=== PATIENT | female | born 1950 ===

== ENCOUNTER 2022-10-03 10:26 | Outpatient (CLI) | payer OTHER | END 2022-10-03 10:35 | disposition home or self-care (01) | LOC: MAMO-SONO 10:26 | PROVIDERS: ATTEND Family Medicine Geriatric Medicine | DX: Z12.31 Encounter for screening mammogram for malignant neoplasm of breast (principal) ==

== ENCOUNTER 2024-05-12 09:43 | Outpatient (CLI) | payer OTHER | END 2024-05-12 09:44 | disposition home or self-care (01) | LOC: NUCLEAR 09:43 | PROVIDERS: ATTEND Family Medicine Geriatric Medicine | DX: I70.213 Atherosclerosis of native arteries of extremities with intermittent claudication, bilateral legs (principal) ==

== ENCOUNTER 2024-05-13 09:47 | Outpatient (CLI) | payer OTHER | END 2024-05-13 09:48 | disposition home or self-care (01) | LOC: NUCLEAR 09:47 | PROVIDERS: ATTEND Family Medicine Geriatric Medicine | DX: G31.09 Other frontotemporal neurocognitive disorder (principal) ==